=== PATIENT | male | born 1955 | race Caucasian/White ===

== ENCOUNTER 2018-06-18 10:55 | Emergency (ER) | payer OTHER ==
[~2018-06-18] VITALS: Ht 175.3 cm; Wt 68.3 kg
[2018-06-18 10:55] VITALS: BP 122/73
[2018-06-18] MEDS ORDERED: LIDOCAINE 1%-EPI 1:100K, 20ML ONE (11:16)
== END 2018-06-18 12:07 | disposition home or self-care (01) ==
LOC: ED 12:01
DX: L02.31 Cutaneous abscess of buttock (principal); F15.10 Other stimulant abuse, uncomplicated; F11.10 Opioid abuse, uncomplicated; F17.200 Nicotine dependence, unspecified, uncomplicated; Z72.9 Problem related to lifestyle, unspecified; Z75.9 Unspecified problem related to medical facilities and other health care
CPT/HCPCS: 10060; 99283